=== PATIENT | female | born 1995 | race Caucasian/White ===

== ENCOUNTER 2019-11-18 00:09 | Inpatient (IN) | payer BC ==
[2019-11-18] MEDS ORDERED: Ondansetron 4 MG/2 ML SDV IVPUSH PRN (00:29)
[2019-11-18] MEDS ORDERED: Methylergonovine 0.2 MG/1 ML Amp IM PRN (00:29)
[2019-11-18] MEDS ORDERED: Terbutaline 1 MG/ML SDV SUBCUT PRN (00:29)
[2019-11-18] MEDS ORDERED: Sodium Chloride 0.9% 10 ML Syringe FLUSH PRN (00:29)
[2019-11-18] MEDS ORDERED: Lidocaine 1% 50 ML MDV INJECT PRN (00:29)
[2019-11-18] MEDS ORDERED: Sodium Chloride 0.9% 2.5 ML Syringe FLUSH PRN (00:29)
[2019-11-18] MEDS ORDERED: Tranexamic Acid 1,000 MG in Sodium Chloride 0.9% 100 ML IV PRN (00:29)
[2019-11-18] MEDS ORDERED: Water For Irrigation,Sterile 1,000 ML Container IRR PRN (00:29)
[2019-11-18] MEDS ORDERED: Butorphanol 1 MG/ML SDV IVPUSH PRN (00:29)
[2019-11-18] MEDS ORDERED: Carboprost Tromethamine 250 MCG/1 ML Amp IM PRN (00:29)
[2019-11-18] MEDS ORDERED: Misoprostol 200 MCG Tab PO PRN (00:29)
[2019-11-18] MEDS ORDERED: Sodium Chloride 0.9% 10 ML SDV IV PRN (00:29)
[2019-11-18] MEDS ORDERED: Nalbuphine 10 MG/1 ML Vial IVPUSH PRN (00:29)
[2019-11-18] MEDS ORDERED: Oxytocin/0.9 % Sodium Chloride 30 UNIT/500 ML BAG IV SCH ×2 (00:30)
[2019-11-18] MEDS: Lactated Ringers 1,000 ML IV SCH ×4 (00:52→13:17)
[2019-11-18] MEDS ORDERED: Ampicillin 2 GM in Sodium Chloride 0.9% 100 ML IV ONE (01:00)
[2019-11-18] MEDS ORDERED: Misoprostol 25 MCG (1/4 of 100 MCG) Tab VAG PRN ×2 (01:00→05:00)
[2019-11-18 03:45] LABS: BLOOD UREA NITROGEN,BUN 8 mg/dL (7.0-18.0); CARBON DIOXIDE,CO2 21.4 mmol/L (21.0-32.0); CHLORIDE,CL 103 mmol/L (98-107); GLUCOSE RANDOM 95 mg/dL (74-106); POTASSIUM,K 4.5 mmol/L (3.5-5.1); SODIUM,NA 137 mmol/L (136-145)
[2019-11-18] MEDS ORDERED: Ampicillin 1 GM AdvVial IV ONE (04:14)
[2019-11-18] MEDS ORDERED: Sodium Chloride 0.9% 50 ML ONE (04:16)
[2019-11-18] MEDS: Ampicillin 1 GM in Sodium Chloride 0.9% 50 ML IV SCH ×3 (04:42→13:16)
[2019-11-18] MEDS ORDERED: Misoprostol 50 MCG (1/2 of 100 MCG) Tab VAG SCH (07:00)
[2019-11-18] MEDS ORDERED: Misoprostol 25 MCG (1/4 of 100 MCG) Tab ONE (07:06)
--- NOTE | 2019-11-18 09:58 | PCM.PREANE ---
Preanesthetic Assessment - Anesthesia/Transfusion/Family Hx Anesthesia History: Prior Anesthesia Without Reaction (cardiac ablation times 2) Family History of Anesthesia Reaction: No Transfusion History: No Prior Transfusion(s) - Review of Systems General: No Symptoms Pulmonary: No Symptoms Cardiovascular: Other (HTN) Gastrointestinal: Other (GERD) Neurological: No Symptoms Other: Reports: None - Physical Assessment NPO Status Date: 11/18/19 NPO Status Time: 09:00 Height: 5 ft 5.5 in Weight: 113.398 kg ASA Class: 3 Mental Status: Alert & Oriented x3 Dentition: Reports: Normal Dentition Lungs: Normal Respiratory Effort Cardiovascular: Regular Rate, Regular Rhythm - Lab Values: Laboratory Last Values WBC 12.96 K/uL (4.0-11.0) H 11/18/19 00:10 RBC 4.49 M/uL (4.30-5.90) 11/18/19 00:10 Hgb 12.5 g/dL (12.0-16.0) 11/18/19 00:10 Hct 37.4 % (36.0-46.0) 11/18/19 00:10 MCV 83.3 fL (80.0-98.0) 11/18/19 00:10 MCH 27.8 pg (27.0-32.0) 11/18/19 00:10 MCHC 33.4 g/dL (31.0-37.0) 11/18/19 00:10 RDW Std Deviation 43.9 fl (28.0-62.0) 11/18/19 00:10 RDW Coeff of Tootie 15 % (11.0-15.0) 11/18/19 00:10 Plt Count 387 K/uL (150-400) 11/18/19 00:10 MPV 10.80 fL (7.40-12.00) 11/18/19 00:10 Sodium 137 mmol/L (136-145) 11/18/19 00:10 Potassium 4.5 mmol/L (3.5-5.1) 11/18/19 00:10 Chloride 103 mmol/L (98-107) 11/18/19 00:10 Carbon Dioxide 21.4 mmol/L (21.0-32.0) 11/18/19 00:10 BUN 8 mg/dL (7.0-18.0) 11/18/19 00:10 Creatinine 0.5 mg/dL (0.6-1.0) L 11/18/19 00:10 Est Cr Clr Drug Dosing 156.52 mL/min 11/18/19 00:10 Estimated GFR (MDRD) > 60.0 ml/min 11/18/19 00:10 Glucose 95 mg/dL (74-106) 11/18/19 00:10 Calcium 8.7 mg/dL (8.5-10.1) 11/18/19 00:10 Total Bilirubin 0.1 mg/dL (0.2-1.0) L 11/18/19 00:10 AST 18 IU/L (15-37) 11/18/19 00:10 ALT 17 IU/L (14-63) 11/18/19 00:10 Alkaline Phosphatase 205 U/L (46-116) H 11/18/19 00:10 Total Protein 5.8 g/dL (6.4-8.2) L 11/18/19 00:10 Albumin 2.5 g/dL (3.4-5.0) L 11/18/19 00:10 Globulin 3.3 g/dL (2.6-4.0) 11/18/19 00:10 Albumin/Globulin Ratio 0.8 (0.9-1.6) L 11/18/19 00:10 SARS-CoV-2 RNA (RT-PCR) POSITIVE (NEGATIVE) H 11/18/19 00:05 Blood Type A POSITIVE 11/18/19 00:10 Antibody Screen NEGATIVE 11/18/19 00:10 - Allergies Allergies/Adverse Reactions: Allergies Allergy/AdvReac Type Severity Reaction Status Date / Time No Known Allergies Allergy Verified 11/18/19 00:29 - Acknowledgements Anesthesia Type Planned: Epidural Pt an Appropriate Candidate for the Planned Anesthesia: Yes Alternatives and Risks of Anesthesia Discussed w Pt/Guardian: Yes Pt/Guardian Understands and Agrees with Anesthesia Plan: Yes PreAnesthesia Questionnaire Cardiovascular History: Reports: Hypertension (PIH) Other Cardiovascular History: 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 Pt states that she had palpitations within 6 months after her ablation at that time Respiratory History: Reports: None Gastrointestinal History: Reports: [employer] History: Reports: - Infectious Disease History Infectious Disease History: Reports: Chicken Pox - Past Surgical History Other Cardiovascular Surgeries/Procedures: cardiac ablation in 2009 and 12/2014 - SUBSTANCE USE Smoking Status *Q: Never Smoker Second Hand Smoke Exposure: No Days Per Week of Alcohol Use: 0 Number of Drinks Per Day: 0 Total Drinks Per Week: 0 - HOME MEDS Home Medications: Home Meds Ascorbic Acid [Vitamin C] 500 mg PO 11/18/19 [History] Biotin/Calcium Carbonate [Biotin 800 MCG] 1 tab PO DAILY 11/18/19 [History] Cholecalciferol (Vitamin D3) [Vitamin D3] 400 unit PO 11/18/19 [History] Ergocalciferol (Vitamin D2) [Vitamin D2] 1 cap PO DAILY 11/18/19 [History] Magnesium Oxide [Magnesium] 1 tab PO DAILY 11/18/19 [History] Pnv No.95/Ferrous Fum/Folic AC [ Vitamins Tablet] 1 tab PO DAILY 11/18/19 [History] Prasterone (DHEA)/Calcium Carb [DHEA] 1 tab PO DAILY 11/18/19 [History] - CURRENT (IN HOUSE) MEDS Current Meds: Current Medications Butorphanol Tartrate (Stadol) 1 mg IVPUSH Q1H PRN PRN Reason: Pain Last Admin: 11/18/19 08:39 Dose: 1 mg Documented by: Carboprost Tromethamine (Hemabate Ds) 250 mcg IM ASDIRECTED PRN PRN Reason: Post Hemorrhage Oxytocin/Sodium Chloride (Oxytocin 30 Unit/500 Ml-Ns) 30 unit in 500 mls @ 500 mls/hr IV TITRATE VIBHA Tranexamic Acid 1,000 mg/ (Sodium Chloride) 110 mls @ 660 mls/hr IV ONETIME PRN PRN Reason: Bleeding Oxytocin/Sodium Chloride (Oxytocin 30 Unit/500 Ml-Ns) 30 unit in 500 mls @ 2 mls/hr IV TITRATE VIBHA; Protocol Lactated Ringer's (Ringers, Lactated) 1,000 mls @ 150 mls/hr IV ASDIRECTED VIBHA Last Infusion: 11/18/19 09:48 Dose: Infused Documented by: Ampicillin Sodium 1 gm/ Sodium (Chloride) 50 mls @ 100 mls/hr IV Q4H VIBHA Last Admin: 11/18/19 08:42 Dose: 100 mls/hr Documented by: Lidocaine HCl (Xylocaine 1%) 50 ml INJECT ONETIME PRN PRN Reason: Laceration repair Methylergonovine Maleate (Methergine) 0.2 mg IM ASDIRECTED PRN PRN Reason: Post Hemorrhage Misoprostol (Cytotec) 200 mcg PO ONETIME PRN PRN Reason: Post Hemorrhage Misoprostol (Cytotec) 25 mcg VAG ONETIME PRN PRN Reason: Cervical Ripening Last Admin: 11/18/19 01:06 Dose: 25 mcg Documented by: Misoprostol (Cytotec) 25 mcg VAG Q6H VIBHA Nalbuphine HCl (Nubain) 10 mg IVPUSH Q1H PRN PRN Reason: Pain (severe 7-10) Ondansetron HCl (Zofran) 4 mg IVPUSH Q6H PRN PRN Reason: Nausea/Vomiting Sodium Chloride (Saline Flush) 10 ml FLUSH ASDIRECTED PRN PRN Reason: Keep Vein Open Sodium Chloride (Saline Flush) 2.5 ml FLUSH ASDIRECTED PRN PRN Reason: Keep Vein Open Sodium Chloride (Normal Saline) 10 ml IV ASDIRECTED PRN PRN Reason: IV Use Sterile Water (Sterile Water For Irrigation) 1,000 ml IRR ASDIRECTED PRN PRN Reason: delivery Terbutaline Sulfate (Brethine) 0.25 mg SUBCUT ASDIRECTED PRN PRN Reason: Tacysystole Discontinued Medications Ampicillin Sodium (Ampicillin) Confirm Administered Dose 1 gm IV .STK-MED ONE Stop: 11/18/19 04:15 Ampicillin Sodium 2 gm/ Sodium (Chloride) 100 mls @ 200 mls/hr IV ONETIME ONE Stop: 11/18/19 01:29 Last Admin: 11/18/19 01:00 Dose: 200 mls/hr Documented by: Sodium Chloride (Normal Saline) Confirm Administered Dose 50 mls @ as directed .ROUTE .STK-MED ONE Stop: 11/18/19 04:17 Misoprostol (Cytotec) Confirm Administered Dose 25 mcg .ROUTE .STK-MED ONE Stop: 11/18/19 07:07
[2019-11-18] MEDS ORDERED: Bupivicaine/fentaNYL/NS 250 ML ONE (10:01)
--- NOTE | 2019-11-18 16:16 | PCM.DEL ---
L & D Note - General Info Date of Service: 11/18/19 Mother's Due Date: 11/18/19 - Delivery Note Labor: Induced by Oxytocin Cervical Ripening Method: Misoprostil Delivery Outcome: Livebirth Infant Delivery Method: Spontaneous Vaginal Delivery-Single Presentation: Left Occiput Anterior (RASHAUN) Nuchal Cord: None Prep: Other Anesthesia Type: Epidural Anesthetic: Lidocaine (Xylocaine) 1% Plain Local Anesthetic Volume: Other (10 cc) Amniotic Fluid Description: Clear Episiotomy Type: None Laceration: 2nd Degree Suture type: Vicryl Suture size: 3-0 Placenta: Intact, Spontaneous Cord: 3 Vessels Estimated Blood Loss: 300 Resuscitation Needed: No [place]: Suctioned Provider: Sina Zaldivar Score 1 min: 9 Score 5 min: 9 Delivery Comments (Free Text/Narrative):: Patient Covid positive on admission, isolation precautions in negative pressure room, baby taken to isolation room after delivery, liverborn female weight 3500 grams. - General Info Date of Service: 11/18/19 - Patient Data Weight - Most Recent: 113.398 kg I&O - Last 24 Hours: Intake & Output 11/18/19 11/18/19 11/18/19 06:59 14:59 22:59 Intake Total 150 Balance 150 Lab Results Last 24 Hours: Laboratory Results - last 24 hr 11/18/19 11/18/19 11/18/19 Range/Units 00:05 00:10 00:10 WBC 12.96 H (4.0-11.0) K/uL RBC 4.49 (4.30-5.90) M/uL Hgb 12.5 (12.0-16.0) g/dL Hct 37.4 (36.0-46.0) % MCV 83.3 (80.0-98.0) fL MCH 27.8 (27.0-32.0) pg MCHC 33.4 (31.0-37.0) g/dL RDW Std Deviation 43.9 (28.0-62.0) fl RDW Coeff of Tootie 15 (11.0-15.0) % Plt Count 387 (150-400) K/uL MPV 10.80 (7.40-12.00) fL Sodium (136-145) mmol/L Potassium (3.5-5.1) mmol/L Chloride (98-107) mmol/L Carbon Dioxide (21.0-32.0) mmol/L BUN (7.0-18.0) mg/dL Creatinine (0.6-1.0) mg/dL Est Cr Clr Drug Dosing mL/min Estimated GFR (MDRD) ml/min Glucose (74-106) mg/dL Calcium (8.5-10.1) mg/dL Total Bilirubin (0.2-1.0) mg/dL AST (15-37) IU/L ALT (14-63) IU/L Alkaline Phosphatase (46-116) U/L Total Protein (6.4-8.2) g/dL Albumin (3.4-5.0) g/dL Globulin (2.6-4.0) g/dL Albumin/Globulin Ratio (0.9-1.6) SARS-CoV-2 RNA (RT-PCR) POSITIVE H (NEGATIVE) Blood Type A POSITIVE Antibody Screen NEGATIVE 11/18/19 Range/Units 00:10 WBC (4.0-11.0) K/uL RBC (4.30-5.90) M/uL Hgb (12.0-16.0) g/dL Hct (36.0-46.0) % MCV (80.0-98.0) fL MCH (27.0-32.0) pg MCHC (31.0-37.0) g/dL RDW Std Deviation (28.0-62.0) fl RDW Coeff of Tootie (11.0-15.0) % Plt Count (150-400) K/uL MPV (7.40-12.00) fL Sodium 137 (136-145) mmol/L Potassium 4.5 (3.5-5.1) mmol/L Chloride 103 (98-107) mmol/L Carbon Dioxide 21.4 (21.0-32.0) mmol/L BUN 8 (7.0-18.0) mg/dL Creatinine 0.5 L (0.6-1.0) mg/dL Est Cr Clr Drug Dosing 156.52 mL/min Estimated GFR (MDRD) > 60.0 ml/min Glucose 95 (74-106) mg/dL Calcium 8.7 (8.5-10.1) mg/dL Total Bilirubin 0.1 L (0.2-1.0) mg/dL AST 18 (15-37) IU/L ALT 17 (14-63) IU/L Alkaline Phosphatase 205 H (46-116) U/L Total Protein 5.8 L (6.4-8.2) g/dL Albumin 2.5 L (3.4-5.0) g/dL Globulin 3.3 (2.6-4.0) g/dL Albumin/Globulin Ratio 0.8 L (0.9-1.6) SARS-CoV-2 RNA (RT-PCR) (NEGATIVE) Blood Type Antibody Screen Med Orders - Current: Current Medications Butorphanol Tartrate (Stadol) 1 mg IVPUSH Q1H PRN PRN Reason: Pain Last Admin: 11/18/19 08:39 Dose: 1 mg Documented by: Carboprost Tromethamine (Hemabate Ds) 250 mcg IM ASDIRECTED PRN PRN Reason: Post Hemorrhage Oxytocin/Sodium Chloride (Oxytocin 30 Unit/500 Ml-Ns) 30 unit in 500 mls @ 500 mls/hr IV TITRATE VIBHA Tranexamic Acid 1,000 mg/ (Sodium Chloride) 110 mls @ 660 mls/hr IV ONETIME PRN PRN Reason: Bleeding Oxytocin/Sodium Chloride (Oxytocin 30 Unit/500 Ml-Ns) 30 unit in 500 mls @ 2 mls/hr IV TITRATE VIBHA; Protocol Last Titration: 11/18/19 14:52 Dose: 10 munits/min, 10 mls/hr Documented by: Lactated Ringer's (Ringers, Lactated) 1,000 mls @ 150 mls/hr IV ASDIRECTED VIBHA Last Admin: 11/18/19 13:17 Dose: 150 mls/hr Documented by: Ampicillin Sodium 1 gm/ Sodium (Chloride) 50 mls @ 100 mls/hr IV Q4H VIBHA Last Admin: 11/18/19 13:16 Dose: 100 mls/hr Documented by: Lidocaine HCl (Xylocaine 1%) 50 ml INJECT ONETIME PRN PRN Reason: Laceration repair Methylergonovine Maleate (Methergine) 0.2 mg IM ASDIRECTED PRN PRN Reason: Post Hemorrhage Misoprostol (Cytotec) 200 mcg PO ONETIME PRN PRN Reason: Post Hemorrhage Misoprostol (Cytotec) 25 mcg VAG ONETIME PRN PRN Reason: Cervical Ripening Last Admin: 11/18/19 01:06 Dose: 25 mcg Documented by: Misoprostol (Cytotec) 25 mcg VAG Q6H VIBHA Nalbuphine HCl (Nubain) 10 mg IVPUSH Q1H PRN PRN Reason: Pain (severe 7-10) Ondansetron HCl (Zofran) 4 mg IVPUSH Q6H PRN PRN Reason: Nausea/Vomiting Sodium Chloride (Saline Flush) 10 ml FLUSH ASDIRECTED PRN PRN Reason: Keep Vein Open Sodium Chloride (Saline Flush) 2.5 ml FLUSH ASDIRECTED PRN PRN Reason: Keep Vein Open Sodium Chloride (Normal Saline) 10 ml IV ASDIRECTED PRN PRN Reason: IV Use Sterile Water (Sterile Water For Irrigation) 1,000 ml IRR ASDIRECTED PRN PRN Reason: delivery Terbutaline Sulfate (Brethine) 0.25 mg SUBCUT ASDIRECTED PRN PRN Reason: Tacysystole Discontinued Medications Ampicillin Sodium (Ampicillin) Confirm Administered Dose 1 gm IV .STK-MED ONE Stop: 11/18/19 04:15 Ampicillin Sodium 2 gm/ Sodium (Chloride) 100 mls @ 200 mls/hr IV ONETIME ONE Stop: 11/18/19 01:29 Last Admin: 11/18/19 01:00 Dose: 200 mls/hr Documented by: Sodium Chloride (Normal Saline) Confirm Administered Dose 50 mls @ as directed .ROUTE .STK-MED ONE Stop: 11/18/19 04:17 Fentanyl/Bupivacaine HCl (Fentanyl/Bupivacaine/Ns 2 Mcg-0.125% 250 Ml) Confirm Administered Dose 250 mls @ as directed .ROUTE .STK-MED ONE Stop: 11/18/19 10:02 Misoprostol (Cytotec) Confirm Administered Dose 25 mcg .ROUTE .STK-MED ONE Stop: 11/18/19 07:07 - Problem List & Annotations (1) COVID-19 affecting childbirth SNOMED Code(s): 419821035 Code(s): O98.52 - OTHER VIRAL DISEASES COMPLICATING CHILDBIRTH; U07.1 - COVID-19 Status: Acute Current Visit: Yes (2) Vaginal delivery SNOMED Code(s): 644375337 Code(s): O80 - ENCOUNTER FOR FULL-TERM UNCOMPLICATED DELIVERY Status: Acute Current Visit: Yes - Problem List Review Problem List Initiated/Reviewed/Updated: Yes - My Orders Last 24 Hours: My Active Orders 11/18/19 00:10 RPR (SYPHILIS SERO) W/ RFLX [REF] Routine 11/18/19 00:29 Patient Status [ADT] Routine Bedrest Bathroom Privileges [RC] ASDIRECTED Communication Order [RC] ASDIRECTED Communication Order [RC] ASDIRECTED Communication Order [RC] ASDIRECTED Heart Tones [RC] CONTINUOUS Non Stress Test [RC] PER UNIT ROUTINE May Shower [RC] ASDIRECTED Notify Provider [RC] PRN Notify Provider [RC] PRN Notify Provider [RC] PRN Notify Provider [RC] STAT Oxygen Therapy [RC] ASDIRECTED Up ad Prachi [RC] ASDIRECTED Vaginal Exam [RC] PRN Vital Signs [RC] PER UNIT ROUTINE Vital Signs [RC] PER UNIT ROUTINE Butorphanol [Stadol] 1 mg IVPUSH Q1H PRN Carboprost Tromethamine [Hemabate DS] 250 mcg IM ASDIRECTED PRN Lidocaine 1% [Xylocaine 1%] 50 ml INJECT ONETIME PRN Methylergonovine [Methergine] 0.2 mg IM ASDIRECTED PRN Nalbuphine [Nubain] 10 mg IVPUSH Q1H PRN Ondansetron [Zofran] 4 mg IVPUSH Q6H PRN Sodium Chloride 0.9% [Normal Saline] 10 ml IV ASDIRECTED PRN Sodium Chloride 0.9% [Saline Flush] 10 ml FLUSH ASDIRECTED PRN Sodium Chloride 0.9% [Saline Flush] 2.5 ml FLUSH ASDIRECTED PRN Terbutaline [Brethine] 0.25 mg SUBCUT ASDIRECTED PRN Tranexamic Acid [Cyklokapron] 1,000 mg Sodium Chloride 0.9% [Normal Saline] 100 ml IV ONETIME Water For Irrigation,Sterile [Sterile Water for Irrigation] 1,000 ml IRR ASDIRECTED PRN miSOPROStoL [Cytotec] 200 mcg PO ONETIME PRN Scalp Electrode [WOMSER] Per Unit Routine Peripheral IV Insertion Adult [OM.PC] Routine Resuscitation Status Routine 11/18/19 00:30 Lactated Ringers [Ringers, Lactated] 1,000 ml IV ASDIRECTED Oxytocin/0.9 % Sodium Chloride [Oxytocin 30 Unit/500 ML-NS] 30 unit in 500 ml IV TITRATE Oxytocin/0.9 % Sodium Chloride [Oxytocin 30 Unit/500 ML-NS] 30 unit in 500 ml IV TITRATE Medication Administration Instruction [OM.PC] Q3H 11/18/19 01:00 miSOPROStoL [Cytotec] 25 mcg VAG ONETIME PRN 11/18/19 05:00 Ampicillin 1 gm Sodium Chloride 0.9% [Normal Saline] 50 ml IV Q4H 11/18/19 Breakfast Clear Liquid Diet [DIET] 11/18/19 07:00 miSOPROStoL [Cytotec] 25 mcg VAG Q6H
[2019-11-18] MEDS ORDERED: Benzocaine/Menthol 20%-0.5% Spray 78 GM Cannister TOP PRN (16:17)
[2019-11-18] MEDS ORDERED: Bisacodyl 10 MG Supp RECTAL PRN (16:17)
[2019-11-18] MEDS ORDERED: Acetaminophen 500 MG Tab PO PRN (16:17)
[2019-11-18] MEDS ORDERED: Lanolin 100% Cream 7 GM Tube TOP PRN (16:17)
[2019-11-18] MEDS ORDERED: Ibuprofen 400 MG Tab PO PRN (16:17)
[2019-11-18] MEDS ORDERED: Witch Hazel Medicated Pads 40/Jar TOP PRN (16:17)
[2019-11-18] MEDS: Ibuprofen 800 MG Tab PO PRN (18:29)
[2019-11-18] MEDS: Docusate Sodium 100 MG Cap PO PRN (18:29)
[2019-11-18] MEDS: Acetaminophen 500 MG Tab PO PRN ×2 (18:30→22:55)
--- NOTE | 2019-11-18 20:30 | OR ---
SURGEON: Radha Carlisle M.D. DATE OF PROCEDURE: 11/18/2019 PREOPERATIVE DIAGNOSES: A 40-week intrauterine , mild gestational hypertension, COVID positive. POSTOPERATIVE DIAGNOSES: A 40-week intrauterine , mild gestational hypertension, COVID positive. PROCEDURES: Cytotec and Pitocin induction, term spontaneous vaginal delivery, repair of second-degree laceration. PRIMARY SURGEON: Radha Carlisle MD ANESTHESIA: Epidural. ESTIMATED BLOOD LOSS: Less than 300 mL. FINDINGS: Liveborn female, score of 9 and 9, weighing 3500 g. Placenta spontaneous, Rollins intact, with 3 vessels. Second-degree perineal laceration, repaired. COMPLICATIONS: None known. DISPOSITION: Mother is in isolation in good condition. Baby is separately isolated in good condition. BRIEF HISTORY: This is a 24-year-old female. She is G1, P0. Her care has been complicated by rising blood pressures relative to her baseline over the last 10 days. She is at 40 weeks' gestation and presented for induction of labor. On routine screening for admission to Labor and Delivery, she did screen positive with a rapid COVID test and was placed in isolation. She was counseled regarding plan for protection of the baby after delivery, and she did agree to this plan. Additionally, her was tested and was negative. Contact, aerosol, and respiratory droplet precautions were utilized for healthcare personnel in the room. She received 2 doses of Cytotec. She was 3 cm dilated. She did receive an epidural for pain control, and she had spontaneous rupture of membranes. She received Pitocin up to a maximum of 6 milliunits per minute. She progressed to complete. DESCRIPTION OF PROCEDURE: With the patient in dorsal lithotomy position, the patient pushed to a 5+ station at which time the head was delivered spontaneously and atraumatically over the perineum with support with subsequent delivery of the infant's shoulders and body without any difficulty. The infant was bulb suctioned by nose and mouth, and after the cord had ceased to pulsate, it was doubly clamped and cut. The infant was handed to a nurse waiting to take the to isolation as a person under investigation. The cord blood was collected for cord ABGs as well as routine cord blood sampling. Pitocin was initiated after delivery of the infant to assist with delivery of the placenta, which was delivered spontaneously, Rollins intact, with 3 vessels. Upon inspection the pelvis and perineum, there were no periurethral, vaginal sidewall, cervical, or rectal lacerations. There was a small second-degree perineal laceration that was repaired using a running lock suture of 3-0 Vicryl for the vaginal mucosa, a deep running suture of the same for the perineum, and a subcuticular suture of the same for the skin. Prior to initiating the repair, 10 mL of 1% lidocaine was injected as she had incomplete pain control with her epidural alone. Final sponge, needle, and instrument counts were correct. There were no known complications. Mother remains in isolation in good condition. Baby remains separately in isolation in good condition. LYNN / MAXIMUS /[id number]
[2019-11-19] MEDS: Ibuprofen 800 MG Tab PO PRN ×3 (00:38→12:59)
[2019-11-19] MEDS: Acetaminophen 500 MG Tab PO PRN ×2 (06:38→10:51)
[2019-11-19 08:12] VITALS: PULSE 88
--- NOTE | 2019-11-19 09:05 | PCM48HPAN ---
Post Anesthesia Note - EVALUATION WITHIN 48HRS OF ANESTHETIC Vital Signs in Normal Range: Yes Patient Participated in Evaluation: Yes Respiratory Function Stable: Yes Airway Patent: Yes Cardiovascular Function Stable: Yes Hydration Status Stable: Yes Pain Control Satisfactory: Yes Nausea and Vomiting Control Satisfactory: Yes Mental Status Recovered: Yes Vital Signs: Last Vital Signs Temp 35.8 C L 11/19/19 08:00 Pulse 88 11/19/19 08:00 Resp 15 11/19/19 08:00 BP 119/69 11/19/19 08:00 Pulse Ox 96 11/19/19 05:00 - COMMENTS/OBSERVATIONS Free Text/Narrative:: Patient denies any complaints at this time.
--- NOTE | 2019-11-19 10:20 | PCM.PNPP ---
- General Info Date of Service: 11/19/19 Functional Status: Reports: Pain Controlled, Tolerating Diet, Ambulating, Urinating - Review of Systems General: Reports: No Symptoms HEENT: Reports: No Symptoms Pulmonary: Reports: No Symptoms Cardiovascular: Reports: No Symptoms Gastrointestinal: Reports: No Symptoms Genitourinary: Reports: No Symptoms Musculoskeletal: Reports: No Symptoms Skin: Reports: No Symptoms Neurological: Reports: No Symptoms Psychiatric: Reports: No Symptoms - General Info Date of Service: 11/19/19 - Patient Data Vital Signs - Most Recent: Last Vital Signs Temp 35.8 C L 11/19/19 08:00 Pulse 88 11/19/19 08:00 Resp 15 11/19/19 08:00 BP 119/69 11/19/19 08:00 Pulse Ox 96 11/19/19 05:00 Weight - Most Recent: 113.398 kg I&O - Last 24 Hours: Intake & Output 11/18/19 11/19/19 11/19/19 22:59 06:59 14:59 Output Total 350 Balance -350 Lab Results - Last 24 Hours: Laboratory Results - last 24 hr 11/18/19 11/18/19 11/18/19 Range/Units 15:32 18:44 21:35 Hgb (12.0-16.0) g/dL Hct (36.0-46.0) % Cord ABG pH 7.247 (7.18-7.38) Cord ABG Base Excess -9 (-10--2) Cord VBG pH 7.241 L (7.25-7.45) Cord VBG Base Excess -10 (-10--2) SARS Virus RNA (PCR) NEGATIVE (NEGATIVE) SARS-CoV-2 RNA (RT-PCR) NEGATIVE (NEGATIVE) 11/19/19 Range/Units 05:50 Hgb 11.7 L (12.0-16.0) g/dL Hct 36.7 (36.0-46.0) % Cord ABG pH (7.18-7.38) Cord ABG Base Excess (-10--2) Cord VBG pH (7.25-7.45) Cord VBG Base Excess (-10--2) SARS Virus RNA (PCR) (NEGATIVE) SARS-CoV-2 RNA (RT-PCR) (NEGATIVE) Med Orders - Current: Current Medications Acetaminophen (Tylenol Extra Strength) 500 mg PO Q4H PRN PRN Reason: Pain Acetaminophen (Tylenol Extra Strength) 1,000 mg PO Q4H PRN PRN Reason: Pain Last Admin: 11/19/19 06:38 Dose: 1,000 mg Documented by: Benzocaine/Menthol (Dermoplast Pain Relief 20%-0.5% [place]) 78 gm TOP ASDIRECTED PRN PRN Reason: Perineal Comfort Measure Last Admin: 11/18/19 18:18 Dose: 1 canister Documented by: Bisacodyl (Dulcolax) 10 mg RECTAL ONETIME PRN PRN Reason: Constipation Docusate Sodium (Colace) 100 mg PO BID PRN PRN Reason: Constipation Last Admin: 11/18/19 18:29 Dose: 100 mg Documented by: Emollient Ointment (Lansinoh Hpa) 0 gm TOP ASDIRECTED PRN PRN Reason: Sore Nipples Last Admin: 11/18/19 18:30 Dose: 7 gm Documented by: Ibuprofen (Motrin) 400 mg PO Q4H PRN PRN Reason: Pain Ibuprofen (Motrin) 800 mg PO Q6H PRN PRN Reason: Pain Last Admin: 11/19/19 06:39 Dose: 800 mg Documented by: Laura Cali ([facility]) 1 pad TOP ASDIRECTED PRN PRN Reason: comfort care Last Admin: 11/18/19 18:17 Dose: 1 tub Documented by: Discontinued Medications Ampicillin Sodium (Ampicillin) Confirm Administered Dose 1 gm IV .STK-MED ONE Stop: 11/18/19 04:15 Butorphanol Tartrate (Stadol) 1 mg IVPUSH Q1H PRN PRN Reason: Pain Last Admin: 11/18/19 08:39 Dose: 1 mg Documented by: Carboprost Tromethamine (Hemabate Ds) 250 mcg IM ASDIRECTED PRN PRN Reason: Post Hemorrhage Oxytocin/Sodium Chloride (Oxytocin 30 Unit/500 Ml-Ns) 30 unit in 500 mls @ 500 mls/hr IV TITRATE VIBHA Tranexamic Acid 1,000 mg/ (Sodium Chloride) 110 mls @ 660 mls/hr IV ONETIME PRN PRN Reason: Bleeding Oxytocin/Sodium Chloride (Oxytocin 30 Unit/500 Ml-Ns) 30 unit in 500 mls @ 2 mls/hr IV TITRATE VIBHA; Protocol Last Titration: 11/18/19 15:32 Dose: 999 munits/min, 999 mls/hr Documented by: Ampicillin Sodium 2 gm/ Sodium (Chloride) 100 mls @ 200 mls/hr IV ONETIME ONE Stop: 11/18/19 01:29 Last Admin: 11/18/19 01:00 Dose: 200 mls/hr Documented by: Lactated Ringer's (Ringers, Lactated) 1,000 mls @ 150 mls/hr IV ASDIRECTED [facility] Last Admin: 11/18/19 13:17 Dose: 150 mls/hr Documented by: Sodium Chloride (Normal Saline) Confirm Administered Dose 50 mls @ as directed .ROUTE .STK-MED ONE Stop: 11/18/19 04:17 Ampicillin Sodium 1 gm/ Sodium (Chloride) 50 mls @ 100 mls/hr IV Q4H [facility] Last Admin: 11/18/19 13:16 Dose: 100 mls/hr Documented by: Fentanyl/Bupivacaine HCl (Fentanyl/Bupivacaine/Ns 2 Mcg-0.125% 250 Ml) Confirm Administered Dose 250 mls @ as directed .ROUTE .ST-MED ONE Stop: 11/18/19 10:02 Lidocaine HCl (Xylocaine 1%) 50 ml INJECT ONETIME PRN PRN Reason: Laceration repair Methylergonovine Maleate (Methergine) 0.2 mg IM ASDIRECTED PRN PRN Reason: Post Hemorrhage Misoprostol (Cytotec) 200 mcg PO ONETIME PRN PRN Reason: Post Hemorrhage Misoprostol (Cytotec) 25 mcg VAG ONETIME PRN PRN Reason: Cervical Ripening Last Admin: 11/18/19 01:06 Dose: 25 mcg Documented by: Misoprostol (Cytotec) 25 mcg VAG Q6H [facility] Misoprostol (Cytotec) Confirm Administered Dose 25 mcg .ROUTE .STK-MED ONE Stop: 11/18/19 07:07 Nalbuphine HCl (Nubain) 10 mg IVPUSH Q1H PRN PRN Reason: Pain (severe 7-10) Ondansetron HCl (Zofran) 4 mg IVPUSH Q6H PRN PRN Reason: Nausea/Vomiting Sodium Chloride (Saline Flush) 10 ml FLUSH ASDIRECTED PRN PRN Reason: Keep Vein Open Sodium Chloride (Saline Flush) 2.5 ml FLUSH ASDIRECTED PRN PRN Reason: Keep Vein Open Sodium Chloride (Normal Saline) 10 ml IV ASDIRECTED PRN PRN Reason: IV Use Sterile Water (Sterile Water For Irrigation) 1,000 ml IRR ASDIRECTED PRN PRN Reason: delivery Terbutaline Sulfate (Brethine) 0.25 mg SUBCUT ASDIRECTED PRN PRN Reason: Tacysystole - Interaction Disposition, : [place] in Room with Family Interaction: Holding Feeding: Breastfed ; Nursed Well Support Person: - Recovery Exam Fundal Tone: Firm Fundal Level: 1 Fingerbreadths Below Umbilicus Fundal Placement: Midline Lochia Amount: Scant Lochia Color: Rubra/Red Perineum Description: Edematous Other Perinuem Description: 2nd degree episiotomy Episiotomy/Laceration: Approximated Bladder Status: Voiding Urinary Elimination: Voided - Exam General: Alert, Oriented Neck: Supple Lungs: Normal Respiratory Effort GI/Abdominal Exam: Soft, Non-Tender, No Distention Extremities: Normal Range of Motion. No: No Pedal Edema (1+) Skin: Warm, Dry, Intact Neurological: No New Focal Deficit Psy/Mental Status: Alert, Normal Affect, Normal Mood - Problem List & Annotations (1) COVID-19 affecting childbirth SNOMED Code(s): 981800272 Code(s): O98.52 - OTHER VIRAL DISEASES COMPLICATING CHILDBIRTH; U07.1 - COVID-19 Status: Acute Current Visit: Yes (2) Vaginal delivery SNOMED Code(s): 887815080 Code(s): O80 - ENCOUNTER FOR FULL-TERM UNCOMPLICATED DELIVERY Status: Acute Current Visit: Yes - Problem List Review Problem List Initiated/Reviewed/Updated: Yes - My Orders Last 24 Hours: My Active Orders 11/18/19 Dinner Regular Diet [DIET] 11/18/19 16:17 Patient Status [ADT] Routine May Shower [RC] ASDIRECTED Up ad Prachi [RC] ASDIRECTED Vital Signs [RC] PER UNIT ROUTINE Acetaminophen [Tylenol Extra Strength] 1,000 mg PO Q4H PRN Acetaminophen [Tylenol Extra Strength] 500 mg PO Q4H PRN Benzocaine/Menthol [Dermoplast Pain Relief 20%-0.5% [place]] 78 gm TOP ASDIRECTED PRN Docusate Sodium [Colace] 100 mg PO BID PRN Ibuprofen [Motrin] 400 mg PO Q4H PRN Ibuprofen [Motrin] 800 mg PO Q6H PRN Lanolin [Lansinoh HPA] See Dose Instructions TOP ASDIRECTED PRN bisacodyL [Dulcolax] 10 mg RECTAL ONETIME PRN witch Deven [Tucks] 1 pad TOP ASDIRECTED PRN Assess Lochia [WOMSER] Per Unit Routine Assess Uterine Involution [WOMSER] Per Unit Routine Perineal Care [OM.PC] Per Unit Routine Peripheral IV Discontinue [OM.PC] Routine Resuscitation Status Routine 11/19/19 Dinner Regular Diet [DIET] - Assessment Assessment:: PPD#1 after , stable, minimal lochia, mild gestational hypertension is resolved. Reviewed COVID testing, [place] testing was negative as well as RT PCR, although initial screenign test was positive, no exposure, and no symptoms. They have signed liability release to have baby in the room. Dr. Zaldivar, infectious disease nurse are working on plan for baby. Discussed that it is a possibility that she could have converted from positive to negative during hospitalization and if so then that will show up as antibody test positive which we will get at six week , otherwise initial test was false positive. - Plan Plan:: discharge instructions reviewed. Discharge today if baby is cleared for discharge.
[2019-11-19] MEDS: Docusate Sodium 100 MG Cap PO PRN (10:52)
[2019-11-19 16:37] VITALS: BP 135/82
== END 2019-11-19 18:45 | disposition home or self-care (01) | DRG 560 ==
LOC: MW.OBCHECK 00:09 → MW.OB 00:29 → OBSVTOIN 15:32
PROVIDERS: ADMIT Obstetrics & Gynecology; ATTEND Obstetrics & Gynecology
PROC: 10E0XZZ Delivery of Products of Conception, External Approach (ICD-10-PCS; principal; 2019-11-18)
PROC: 3E0P7VZ Introduction of Hormone into Female Reproductive, Via Natural or Artificial Opening (ICD-10-PCS; 2019-11-18)
PROC: 3E033VJ Introduction of Other Hormone into Peripheral Vein, Percutaneous Approach (ICD-10-PCS; 2019-11-18)
PROC: 10E0XZZ Delivery of Products of Conception, External Approach (ICD-10-PCS; 2019-11-18)
PROC: 0KQM0ZZ Repair Perineum Muscle, Open Approach (ICD-10-PCS; 2019-11-18)
PROC: 8E0ZXY6 Isolation (ICD-10-PCS; 2019-11-18)
PROC: 3E0R3BZ Introduction of Anesthetic Agent into Spinal Canal, Percutaneous Approach (ICD-10-PCS; 2019-11-18)
DX: O98.52 Other viral diseases complicating childbirth (principal); O48.0 Post-term pregnancy; O13.4 Gestational [pregnancy-induced] hypertension without significant proteinuria, complicating childbirth; Z37.0 Single live birth; O99.824 Streptococcus B carrier state complicating childbirth; U07.1 COVID-19; Z3A.40 40 weeks gestation of pregnancy; O70.1 Second degree perineal laceration during delivery
CPT/HCPCS: 36415; 51702; 59025; 59409; 80053; 82803; 85014; 85018; 85027; 86592; 86593; 86850; 86900; 86901; A9270-GY; J0290; J0595; J2590; J7050; J7120; U0002

== ENCOUNTER 2023-08-11 19:08 | Emergency (ER) | payer SELFPAY ==
[2023-08-11] MEDS: Lidocaine 4% 1 each Patch TOP PRN (19:33)
[2023-08-11] MEDS: Acetaminophen 325 MG Tab PO ONE (19:33)
[2023-08-11 19:34] LABS: BASOPHILS ABSOLUTE AUTO 0.04 K/uL (0.00-0.20); BASOPHILS PERCENT AUTO 0.3 % (0.0-1.0); EOSINOPHILS ABSOLUTE AUTO 0.13 K/uL (0.00-0.45); EOSINOPHILS PERCENT AUTO 1.1 % (0.0-6.0); HEMATOCRIT 35.9 % (37.0-47.0); IMMATURE GRAN ABSOLUTE AUTO 0.04 K/uL (0.00-0.05); IMMATURE GRAN PERCENT AUTO 0.3 % (0.0-0.4); LYMPHOCYTES ABSOLUTE AUTO 3.31 K/uL (1.00-4.80); LYMPHOCYTES PERCENT AUTO 26.9 % (24.0-44.0); MEAN CORPUSCULAR HEMOGLOBIN 28.6 pg (28.0-32.0); MEAN CORPUSCULAR HGB CONC 33.4 g/dL (32.0-36.0); MEAN CORPUSCULAR VOLUME 85.7 fL (83.0-99.0); MEAN PLATELET VOLUME 9.1 fL (9.4-12.3); MONOCYTES ABSOLUTE AUTO 0.84 K/uL (0.00-0.80); MONOCYTES PERCENT AUTO 6.8 % (0.0-8.0); NEUTROPHILS ABSOLUTE AUTO 7.93 K/uL (1.80-7.70); NEUTROPHILS PERCENT AUTO 64.6 % (41.0-71.0); PLATELET COUNT,PLT 449 K/uL (150-400); RED BLOOD CELL COUNT 4.19 M/uL (4.10-5.30); WHITE BLOOD CELL COUNT,WBC 12.29 K/uL (3.9-11.3)
[2023-08-11] MEDS: Sodium Chloride 0.9% 2.5 ML Syringe FLUSH PRN (19:35)
[2023-08-11] MEDS: Sodium Chloride 0.9% 10 ML Syringe FLUSH PRN (19:35)
[2023-08-11] MEDS: Sodium Chloride 0.9% 1,000 ML IV STA (19:45)
[2023-08-11 19:49] LABS: A/G RATIO 0.9 (0.9-1.6); ALBUMIN 3.1 g/dL (3.4-5.0); BILIRUBIN TOTAL 0.2 mg/dL (0.2-1.0); CALCIUM 8.5 mg/dL (8.5-10.1); CARBON DIOXIDE,CO2 25.2 mmol/L (21.0-32.0); CREATININE 0.7 mg/dL (0.6-1.0); EST CRCL DRUG DOSING (CG) 106.7 mL/min; MAGNESIUM 1.7 mg/dL (1.8-2.4); POTASSIUM,K 3.6 mmol/L (3.5-5.1); PROTEIN TOTAL,TP 6.5 g/dL (6.4-8.2)
[2023-08-11] MEDS: Ketorolac 30 MG/ML SDV IVPUSH ONE (20:24)
[2023-08-11 21:01] VITALS: BP 116/76; PULSE 87
== END 2023-08-11 21:01 | disposition home or self-care (01) ==
LOC: MW.ED 19:08
DX: R55 Syncope and collapse (principal); I10 Essential (primary) hypertension; Z75.8 Other problems related to medical facilities and other health care; V80.010A Animal-rider injured by fall from or being thrown from horse in noncollision accident, initial encounter; Y93.52 Activity, horseback riding
CPT/HCPCS: 36415; 71045; 73502; 80053; 83735; 84484; 84703; 85025; 93005; 96361; 96374; 99284; A9270; J1885; J3490; J7030; 93010